=== PATIENT | female | born 1965 | race Caucasian/White ===

== ENCOUNTER 2017-12-12 08:59 | Day surgery (SDC) | payer OTHER ==
[2017-12-12] MEDS ORDERED: FENTAnyl 50 MCG/ML VIAL (10:48)
[2017-12-12] MEDS ORDERED: MIDAZOLAM 1 MG/ML 2 ML INJ ×4 (10:48→10:49)
== END 2017-12-12 10:46 | disposition home or self-care (01) ==
LOC: GIL 08:59
DX: Z12.11 Encounter for screening for malignant neoplasm of colon (principal); D12.5 Benign neoplasm of sigmoid colon; K21.9 Gastro-esophageal reflux disease without esophagitis; K44.9 Diaphragmatic hernia without obstruction or gangrene; K29.70 Gastritis, unspecified, without bleeding; M06.9 Rheumatoid arthritis, unspecified
CPT/HCPCS: 43239; 88305